=== PATIENT | male | born 1955 | race Caucasian/White ===

== ENCOUNTER 2017-07-25 22:31 | Observation (INO) | payer OTHER ==
[2017-07-25 23:19] LABS: #Basophils 0.1 thou/uL (0.0-0.2); #Eosinphils 0.3 thou/uL (0.0-0.7); #Lymphocytes 1.8 thou/uL (1.20-3.40); #Monocytes 1.2 thou/uL (0.11-0.59); #Neutrophils 9.4 thou/uL (1.40-6.50); %Basophils 0.5 % (0.0-1.0); %Eosinophils 2.1 % (0.0-10.0); %Lymphocytes 13.8 % (21.0-51.0); %Monocytes 9.7 % (0.0-10.0); Hematocrit 42.1 % (42.0-52.0); Mean Platelet Volume 7.1 fL (7.4-10.4); White Blood Cell (WBC) Count 12.7 thou/uL (4.8-10.8)
[2017-07-25 23:36] LABS: ALT (SGPT) 26 U/L (8-55); AST (SGOT) 19 U/L (5-34); Alkaline Phosphatase 103 U/L (40-150); Anion Gap 12 mmol/L (10-20); BUN (Urea Nitrogen) 14 mg/dL (8.4-25.7); Bilirubin, Total 1.1 mg/dL (0.2-1.2); CK (CPK) 96 U/L (30-200); Calc. Creatinine Clearance 0 mL/min (70-130); Calcium 9.5 mg/dL (7.8-10.44); Carbon Dioxide 26 mmol/L (22-29); Chloride 106 mmol/L (98-107); Estimated GFR-MDRD 86; Globulin 2.5 g/dL (2.4-3.5); Lipase 13 U/L (8-78); Protein, Total 6.5 g/dL (6.0-8.3)
[2017-07-25] MEDS ORDERED: Lidocaine Viscous Sol 2% 15 ml UD Cup ONE (23:39)
[2017-07-25] MEDS ORDERED: Nitroglycerin 0.4 MG TAB (25 Tab Bottle) ONE (23:39)
[2017-07-25] MEDS ORDERED: Nitroglycerin 2% Ointment 1 INCH/1 GM Packet ONE (23:39)
[2017-07-25] MEDS ORDERED: Mag-Al 1200 mg/1200 mg/30 ML UDCUP ONE (23:39)
[2017-07-25 23:40] LABS: Troponin I Less than 0.010 ng/mL (< 0.028)
--- NOTE | 2017-07-25 23:43 | RAD ---
PORTABLE AP CHEST: Date: 07-25-17 History: Heart burn, chest pain. Comparison: None available. FINDINGS: Cardiac silhouette is magnified by projection but does appear mildly enlarged. There is minimal atel ectasis at each lung base. Lungs are otherwise clear. Pulmonary vasculature is within normal limits. Osseous structures are intact. IMPRESSION: 1. No acute cardiopulmonary process. 2. Mild cardiomegaly. 3. Minimal bibasilar atelectasis. POS: [facility]
[2017-07-26 02:32] LABS: Troponin I Less than 0.010 ng/mL (< 0.028)
[2017-07-26] MEDS ORDERED: Acetaminophen 325 MG TAB PO PRN ×2 (03:21→04:55)
[2017-07-26 04:34] VITALS: BMI 33.8
[2017-07-26] MEDS ORDERED: cloNIDine HCl 0.1 MG TAB PO PRN (04:55)
[2017-07-26] MEDS ORDERED: Mag-Al 1200 mg/1200 mg/30 ML UDCUP PO PRN (04:55)
[2017-07-26] MEDS ORDERED: HYDROcodone/Acetaminophen 5/325 mg Tablet PO PRN (04:55)
[2017-07-26] MEDS ORDERED: ALPRAZolam 0.5 MG TAB PO PRN (04:55)
--- NOTE | 2017-07-26 05:08 | HP ---
PRIMARY CARE PHYSICIAN: Dr. Kathy Sahni MANAGER FLEET: Dr. Degroot CHIEF COMPLAINT: Indigestion and throat pain. HISTORY OF PRESENT ILLNESS: Mr. Parmar is a pleasant 61-year-old gentleman who is complaining of a strange sensation in his throat. It feels tight and as if he had some indigestion. He said it st arted on Tuesday. He said he ate some bread and took some Tums and it got a little bit better; howev er, the next day the same symptoms came throughout the day and then on the day of admission he said that he was sleeping when he awoke with the sensation again. He says that he would also get some pa in down the center of his chest down to the upper abdomen. He says that he denies having any specif ic heartburn symptoms. He felt a little bit of dyspnea, but no outright shortness of breath. There is no nausea, no diaphoresis. He was concerned that these symptoms could be related to his heart. He also noted that his blood pressure was elevated and had been creeping up over the last few weeks and given this, he came to the emergency room for evaluation. He admits that he has been seeing Dr Anil Degroot for elevated blood pressure, which he says it has been creeping up in the last few weeks; h owever, currently he is not on any scheduled antihypertensive medication. The patient also admits t o having a stress test in September of this year which he says was negative. He also believes he may have undiagnosed sleep apnea because sometimes he stops breathing at night and \\\\"as to have his wi fe shake him at night, sometimes to get him going\\\\". REVIEW OF SYSTEMS: CONSTITUTIONAL: There have been no fevers, chills, no night sweats, no weight loss. HEENT: No headaches, no dizziness, no visual changes, throat discomfort as previously mentioned. PULMONARY: No hemoptysis, no cough, no wheezing. CARDIOVASCULAR: He denies any PND, no orthopnea. He is more or less sedentary, but says that he ca n walk a flight of stairs without significant difficulty. GASTROINTESTINAL: He denies any abdominal pain, no nausea, no vomiting, no change in bowels. GENITOURINARY: No urinary frequency, hematuria, no hesitancy. NEUROLOGIC: No focal weakness, numbness, no seizures. PSYCHIATRIC: No symptoms of anxiety or depression. SKIN AND INTEGUMENT: No skin changes. No rash. PAST MEDICAL HISTORY: Hypertension as well as a thyroid nodule and hyperlipidemia. PAST SURGICAL HISTORY: He has had a urethral stricture repaired as well as a vasectomy. ALLERGIES: No known drug allergies. SOCIAL HISTORY: He is a nonsmoker, nondrinker. He is . FAMILY HISTORY: He says his grandparents had heart disease, both of them, diabetes as well. Father had hypertension and bladder cancer. Mother is healthy. MEDICATIONS: Crestor 20 mg daily, DHEA 25 mg daily, levothyroxine 50 mcg daily, Lexapro 5 mg a day , vitamin D3 5000 units daily, aspirin 81 mg daily, anastrozole 1 mg daily, and then Xanax 0.5 mg at bedtime. PHYSICAL EXAMINATION: GENERAL: He is alert and oriented. He appears to be in no acute distress. VITAL SIGNS: Blood pressure currently is 129/77, heart rate 75, respiratory rate 18, temperature is 94.7. HEENT: Pupils are equal, round, and reactive. Extraocular muscles are intact. Sclerae are anicter ic. Throat no erythema, no exudates. NECK: No adenopathy, no bruits. LUNGS: Clear. No wheezing, no rales. CARDIOVASCULAR: He has a normal S1, S2. No S3 or S4. No murmurs, clicks or rubs. ABDOMEN: Soft, it is nontender, nondistended. Positive for bowel sounds. No rebound or guarding. EXTREMITIES: There is no clubbing, cyanosis, no edema. NEUROLOGICALLY: The exam is nonfocal. LABORATORY AND X-RAY FINDINGS: His EKG is sinus rhythm. He had some T-wave flattening in leads I a nd aVL. His white blood cell count was 12.7, hemoglobin 14.1, hematocrit is 42.1, platelet count is 251. Sodium 140, potassium 3.9, chloride is 106, CO2 is 26, BUN of 14, creatinine 0.9, glucose is 111. Troponin less than 0.010. ASSESSMENT AND PLAN: This is a 61-year-old gentleman that presented to the emergency room complaini ng of throat pain as well as some substernal discomfort. His symptoms seem more GI in characteristi cs than they do of cardiac, especially with the recent stress test which was negative. Given that h e has had a recent stress test, we will not repeat this and instead will consult Dr. Degroot to see i f any further cardiac workup is indicated. If not, then likely the patient can be placed on a tressa n pump inhibitor empirically and follow up with GI as an outpatient.
[2017-07-26 05:34] LABS: Troponin I Less than 0.010 ng/mL (< 0.028)
[2017-07-26] MEDS ORDERED: Nitroglycerin 2% Ointment 1 INCH/1 GM Packet TOP SCH (06:00)
[2017-07-26] MEDS ORDERED: Levothyroxine Sodium 50 MCG TAB PO SCH (06:00)
[2017-07-26] MEDS ORDERED: Aspirin 325 MG TAB PO SCH (09:00)
[2017-07-26] MEDS ORDERED: Escitalopram Oxalate 10 mg Tablet PO SCH (09:00)
[2017-07-26] MEDS ORDERED: PRASTERONE 25 MG PO SCH (09:00)
[2017-07-26] MEDS ORDERED: Docusate 100 MG CAP PO SCH (09:00)
[2017-07-26] MEDS ORDERED: Enoxaparin Sodium 40 MG/0.4 ML SYRINGE SC SCH (09:00)
[2017-07-26] MEDS ORDERED: Anastrozole 1 MG TAB PO SCH (09:00)
[2017-07-26] MEDS ORDERED: Clopidogrel Bisulfate 300 MG TAB PO SCH (15:30)
[2017-07-26 15:59] VITALS: BP 148/80; TEMP 98.1
--- NOTE | 2017-07-26 17:07 | PDOC.PN ---
- Subjective Encounter Start Date: 07/26/17 Encounter Start Time: 17:05 Subjective: heartburn ,tightness in throay resolved - Objective Resuscitation Status: Resuscitation Status FULL:Full Resuscitation MAR Reviewed: Yes Vital Signs & Weight: Vital Signs (12 hours) Temp Pulse Resp BP Pulse Ox 07/26/17 16:19 88 07/26/17 15:58 98.1 F 88 18 148/80 H 94 L 07/26/17 11:32 98.5 F 69 18 133/65 93 L 07/26/17 08:00 98.5 F 69 16 07/26/17 07:24 98.5 F 69 16 138/76 92 L Weight Weight 236 lb 1.6 oz I&O: 07/25/17 07/26/17 07/27/17 06:59 06:59 06:59 Intake Total 130 Balance 130 Result Diagrams: 07/25/17 22:54 07/25/17 22:54 Phys Exam - Physical Examination Constitutional: NAD Neck: no JVD Respiratory: clear to auscultation bilateral Cardiovascular: RRR, no significant murmur Gastrointestinal: soft, positive bowel sounds Musculoskeletal: no edema Dx/Plan (1) Chest pain Code(s): R07.9 - CHEST PAIN, UNSPECIFIED Status: Acute (2) Reflux esophagitis Code(s): K21.0 - GASTRO-ESOPHAGEAL REFLUX DISEASE WITH ESOPHAGITIS Status: Acute (3) HTN (hypertension) Code(s): I10 - ESSENTIAL (PRIMARY) HYPERTENSION Status: Acute (4) Dyslipidemia Code(s): E78.5 - HYPERLIPIDEMIA, UNSPECIFIED Status: Acute - Plan stress test nl, ppi, discuss with cardiology * .
--- NOTE | 2017-07-26 17:35 | DIS ---
DATE OF ADMISSION: 07/26/2017 DATE OF DISCHARGE: 07/26/2017 PRIMARY CARE PROVIDER: Dr. Sahni. DISCHARGE DISPOSITION: Home. FINAL DIAGNOSES: Noncardiac chest pain, probable reflux esophagitis, hypertension, dyslipidemia. DISCHARGE MEDICATIONS: New; Protonix 40 mg p.o. daily, amlodipine 5 mg po daily , plavix 75 mg po daily. Old; Crestor 20 mg a day, DHEA 25 mg a day, Synthroid 50 mcg a day, Lexapro 5 mg a day, aspirin 81 mg a day, anastrozole 1 mg a day, Xanax 0.5 mg at bedtime p.r.n. ALLERGIES: No known drug allergies. PENDING AT THE TIME OF DISCHARGE: Nothing. CODE STATUS: FULL. HOSPITAL COURSE: Patient admitted with a choking sensation pressure in his throat. He has been having some heartburn. He was seen in the emergency room, referred to the [facility]. IMAGING AND LABORATORY DATA: EKG, regular sinus rhythm with some T-wave flattening in the lateral limb leads. CBC: White count 12.7, hemoglobin 14.1, platelet count 251,000. Comp metabolic profile normal. Cardiac enzymes normal x3. Nuclear medicine cardiac stress test normal. Results were discussed with him, then I thought he was having reflux and he was started on Protonix. His blood pressures were 138/76, 133/65, 148/80. He desires to wait for Dr. Degroot before being finally discharged. However, I have written prescriptions and done discharge orders. Pending Dr. Degroot's visit. CONSULTATIONS: Dr. Degroot. PROCEDURES: None. FOLLOWUP: Follow up in [address] Kathy Sahni. [facility]
--- NOTE | 2017-07-26 18:22 | NM ---
NUCLEAR MEDICINE CARDIAC STRESS TEST WITH EJECTION FRACTION 07/26/17 HISTORY: Hypertension, dyslipidemia. Chest pain. COMPARISON: None. TECHNIQUE: Stress and rest was performed after the intravenous administration of 30 and 9 millicuries technetiu m 99m Sestamibi, respectively. FINDINGS: No scar or ischemia. Normal wall motion. Normal ejection fraction, 73%. IMPRESSION: Normal nuclear medicine cardiac stress test and ejection fraction. POS: [facility]
--- NOTE | 2017-07-26 23:22 | CON ---
DATE OF CONSULTATION: 07/26/2017 CARDIOLOGY CONSULTATION NOTE Mr. Parmar is a very pleasant gentleman with chest and neck pain. HISTORY OF PRESENT ILLNESS: Mr. Parmar is a 61-year-old gentleman. The patient states that he wa s doing well up until a couple of nights ago, at which time he started having some burning in his th roat and then ingestion after eating some barbecue. The discomfort persisted the next day. It happ ened all night the night before last and then the next day, he still had it in place. He also noted that his blood pressure is elevated. He came to the emergency room for evaluation where he was fou nd to have negative cardiac enzymes and a normal EKG, but he was admitted for further evaluation. He is resting comfortably, now doing well. REVIEW OF SYSTEMS: Constitutional: No significant weight gain or loss. Vision: No changes. Hear ing: No changes. Pulmonary: No cough or wheezing. Gastrointestinal: Positive for esophageal ref lux. Genitourinary: No burning with urination. Musculoskeletal: No unusual joint pain. Skin: N o rashes. Hematologic: No unusual bruising. Psychiatric: No unusual depression or anxiety. PAST MEDICAL HISTORY: 1. Hypertension. 2. Hyperlipidemia. 3. The patient does have a history of coronary artery disease with mild calcification seen on CT of the coronaries with a negative stress test Pa[place] protocol 04/2016. 4. Hypercholesterolemia. MEDICATIONS PRIOR TO ADMISSION: 1. Aspirin. 2. Crestor 20 mg a day. 3. Vitamin D. FAMILY HISTORY: Negative for heart disease at a young age. PHYSICAL EXAMINATION: GENERAL: This is a pleasant gentleman resting comfortably in no distress. He is alert and awake. VITAL SIGNS: Blood pressure was high yesterday, but today, it is 133/65, pulse 70. HEENT: Eyes; sclerae nonicteric. Mouth; mucous membranes moist. NECK: Supple. No lymphadenopathy. LUNGS: Clear. No wheezing, rales, or rhonchi. CARDIAC: Normal S1, normal S2. There is no murmur, rub, or gallop. ABDOMEN: Soft, nontender. No hepatosplenomegaly. EXTREMITIES: Warm, dry. No clubbing, cyanosis, or edema. PSYCHIATRIC: Mood and affect are normal. NEUROLOGIC: Grossly normal. PERTINENT LABORATORY AND X-RAY FINDINGS: Cardiac enzymes are completely negative. All troponins le ss than 0.010. LDL cholesterol was 98, total cholesterol 153, triglycerides 67. ASSESSMENT: 1. Chest pain, atypical for angina, and then he had the pain lasting for hours preceded by a burnin g sensation. No exertional component and negative cardiac enzymes despite several hours of pain wit h normal EKG. 2. Hypercholesterolemia. Targeted LDL has not been yet reached, the LDL is 98, we would like to ge t it to 70. 3. Hypertension, controlled. PLAN: 1. Add amlodipine. 2. Add Zetia. 3. Protonix. 4. As a precaution, we will give him a loading dose of Plavix and treat him for 30 days. If no rec urrent discomfort, then discontinue the Plavix. If his stress test is negative, which so far it is, then no other intervention would be indicated by the current guidelines at this time.
[2017-07-27] MEDS ORDERED: Ezetimibe 10 MG TAB PO SCH (09:00)
[2017-07-27] MEDS ORDERED: Clopidogrel Bisulfate 75 MG TAB PO SCH (09:00)
== END 2017-07-26 18:04 | disposition home or self-care (01) ==
LOC: ERS 22:31 → 2SW 23:55
PROVIDERS: ADMIT Internal Medicine; ATTEND Internal Medicine
DX: R07.89 Other chest pain (principal); I10 Essential (primary) hypertension; I25.10 Atherosclerotic heart disease of native coronary artery without angina pectoris; E78.00 Pure hypercholesterolemia, unspecified; Z98.52 Vasectomy status; Z98.890 Other specified postprocedural states; Z82.49 Family history of ischemic heart disease and other diseases of the circulatory system; Z80.52 Family history of malignant neoplasm of bladder
CPT/HCPCS: 36415; 71010; 78452; 80053; 80061; 82553; 83690; 84484; 85025; 93005; 93017; A9500; G0378; J1650

== ENCOUNTER 2018-01-06 15:15 | Outpatient (CLI) | payer BC | END 2018-01-06 15:16 | disposition home or self-care (01) | LOC: BICULT 15:15 | PROVIDERS: ATTEND Internal Medicine Endocrinology, Diabetes & Metabolism | DX: E04.2 Nontoxic multinodular goiter (principal); E04.1 Nontoxic single thyroid nodule | CPT/HCPCS: 76536 ==

== ENCOUNTER 2021-09-17 14:53 | Outpatient (CLI) | payer BC | END 2021-09-17 14:54 | disposition home or self-care (01) | LOC: ULT 14:53 | PROVIDERS: ATTEND Internal Medicine Endocrinology, Diabetes & Metabolism | DX: E04.2 Nontoxic multinodular goiter (principal) | CPT/HCPCS: 76536 ==

== ENCOUNTER 2023-01-28 15:08 | Outpatient (CLI) | payer OTHER | END 2023-01-28 15:09 | disposition home or self-care (01) | LOC: BICULT 15:08 | PROVIDERS: ATTEND Otolaryngology Plastic Surgery within the Head & Neck | DX: E04.1 Nontoxic single thyroid nodule (principal) | CPT/HCPCS: 76536 ==

== ENCOUNTER 2025-05-22 15:15 | Outpatient (CLI) | payer BC | END 2025-05-22 15:16 | disposition home or self-care (01) | LOC: ULT 15:15 | PROVIDERS: ATTEND Internal Medicine | DX: N39.0 Urinary tract infection, site not specified (principal); R93.41 Abnormal radiologic findings on diagnostic imaging of renal pelvis, ureter, or bladder; N20.0 Calculus of kidney | CPT/HCPCS: 76770 ==

== ENCOUNTER 2025-10-04 14:33 | Outpatient (CLI) | payer BC | END 2025-10-04 14:34 | disposition home or self-care (01) | LOC: ULT 14:33 | PROVIDERS: ATTEND Internal Medicine Endocrinology, Diabetes & Metabolism | DX: E04.2 Nontoxic multinodular goiter (principal) | CPT/HCPCS: 76536 ==